=== PATIENT | female | born 1975 | race Hispanic/Latino ===

== ENCOUNTER → 2022-07-14 | Day surgery (SDC) | payer BC ==
--- NOTE | 2022-07-09 14:58 | RAD REPORT ---
EXAM DESCRIPTION: RAD - Chest Pa And Lat (2 Views) - 07/09/2022 2:50 pm CLINICAL HISTORY: PRE OP FOR SURGERY Chest pain. COMPARISON: No comparisons FINDINGS: The lungs are clear. The heart is normal in size. No displaced fractures. IMPRESSION: No acute or concerning finding suspected.
[2022-07-09 15:12] LABS: Absolute Lymphocytes (CBC) 1.8 K/uL (0.7-4.9); Hematocrit 36.3 % (36.0-45.0); Lymphocytes % 24.1 % (15.3-44.8); MCV 86.9 fL (80-100); MPV 8.2 fL (7.6-11.3); RBC Red Blood Cell Count 4.18 M/uL (3.86-4.86)
[2022-07-09 15:16] LABS: Protime INR 1.03
[2022-07-09 15:22] LABS: SARS-CoV-2 Antigen Rapid Res Negative (Negative)
[2022-07-09 15:34] LABS: Potassium 3.5 mmol/L (3.5-5.1)
--- NOTE | 2022-07-12 14:13 | EKG ---
Test Date: 2022-07-09 Test Time: 14:41:00 Metalizer: BG MEASUREMENT RESULTS: Intervals: Rate: 72 PA: 144 QRSD: 84 QT: 398 QTc: 435 Buchanan: P: 14 PA: 144 QRS: 10 T: 21 INTERPRETIVE STATEMENTS: Normal sinus rhythm Normal ECG No previous ECG available for comparison Electronically Signed On 07-12-22 14:10:07 CDT by James Christensen
[~2022-07-14] MED LIST: BUPIVACAINE 0.25% PF 10 ML VIAL ONE; CEFAZOLIN SODIUM 1 GM/VIAL ONE; FENTANYL CITR 100 MCG/2 ML IV ONE; FENTANYL CITR 100 MCG/2 ML ONE; LIDOCAINE 2% MPF 5 ML VIAL ONE; MIDAZOLAM HCL 2 MG/2 ML INJ ONE; NS 0.9% VIAL 30 ML ONE; ONDANSETRON 4 MG/2 ML VIAL ONE; Ringers Lactate 1,000 ML IV ONE; propofoL 200 MG/20 ML VIAL IV ONE
[2022-07-14 10:56] LABS: Urine Specific Gravity/Preg 1.025 (1.005-1.030)
--- NOTE | 2022-07-14 12:05 | P.BOP ---
Preoperative diagnosis: right ring finger trigger digit Postoperative diagnosis: same Primary procedure: right ring finger A1 julián release [employer]: NONE,NONE Estimated blood loss: 2 cc Specimen: none Findings: see dictation Anesthesia: General Complications: None Implants: none Fluids & blood products: per anesthesia record; TT: 15 mins @ 250 mmHg Transferred to: Recovery Room Condition: Good
[2022-07-14 12:39] VITALS: TEMP 97.3
[2022-07-14 12:59] VITALS: O2SAT 100
[2022-07-14 13:41] VITALS: BP 113/70
--- NOTE | 2022-07-15 02:31 | OP ---
Date of Procedure: 07/14/2022 Surgeon: Dylan Reeder MD Preoperative Diagnosis: Right ring finger trigger digit. Postoperative Diagnosis: Right ring finger trigger digit. Procedure Performed: Right ring finger A1 julián release. Anesthesia: General LMA. Fluids: Per Anesthesia record. Estimated Blood Loss: 2 cc. Complications: None. Implants: None. Tourniquet Time: 15 minutes at 250 mmHg. Indication For Procedure: Kaleigh is a 46-year-old female, who presented to my clinic with signs and s ymptoms consistent with a right ring finger trigger digit. The patient failed conservative treatment measures including corticosteroid injection. She reported continued pain, injury to the finger that interferes with her activities of daily living. I discussed with the patient at length risks and be nefits associated with operative and nonoperative treatment. She expressed understanding and elected to proceed with operative treatment. Description Of Procedure: After informed consent was obtained, the patient was identified in the pre operative holding area. The right ring finger was marked. She was then brought back to the operatin g room, transferred to the operating table in a supine fashion, and placed under general LMA anesthes ia. The right upper extremity was then prepped and draped in usual sterile fashion. A time-out was initiated. The correct patient and procedure were confirmed and identified. The patient did receive her preoperative prophylactic antibiotics. The right upper extremity was then exsanguinated using a n Esmarch. The tourniquet was inflated to 250 mmHg. Approximately, a 1 cm incision was made centere d over the ring finger A1 julián. Dissection was then taken down to the A1 julián using Ragnell. Th e flexor tendon sheath was identified and released using a 15 blade. There was significant amount of tenosynovial fluid that was expressed after release of the flexor tendon sheath. A portion of the t endon sheath was excised to minimize risk of recurrence and tendon sheaths were then irrigated thorou ghly with normal saline. The tendon was then brought out through the incision. There was full excur acs of the tendon without triggering noted. The wound was then irrigated and skin was approximated using a 5-0 Prolene. Sterile dressings were applied. Tourniquet was let down. The patient was awak ened and transferred to PACU in stable condition. Postoperative Plan: The patient will be nonweightbearing of her right hand. She may work on range o f motion exercises. She will follow up in 1 week for suture removal. SANJUANA/GISEL Voice ID: [id number] Report ID: [id number]
== END ==
LOC: OR 09:23
PROVIDERS: ATTEND Orthopaedic Surgery Sports Medicine
PROC: 0LN70ZZ Release Right Hand Tendon, Open Approach (ICD-10-PCS; principal; 2022-07-14 11:00)
DX: M65.341 Trigger finger, right ring finger (principal); M25.541 Pain in joints of right hand; Z20.822 Contact with and (suspected) exposure to COVID-19
CPT/HCPCS: 93005; 85025; 80048; 36415; 81025; 85610; 85730; 71046; 87811; 26055; J2704; J2001; J2250; J3010 ×3; A4216; J7120; J2405; J0690

== ENCOUNTER 2023-01-03 14:25 | Emergency (ER) | payer BC ==
--- OUTSIDE RECORDS SUMMARY | 2023-01-03 14:28 | XMS REPORT | Continuity of Care Document ---
:1975 Author Organization [facility] t Address [address] [place] [id number] Care Team Providers Name Role Phone DR BALDEV ALICIA Attending Clinician Unavailable DR BALDEV ALICIA Admitting Clinician Unavailable Problems This patient has no known problems. Allergies, Adverse Reactions, Alerts This patient has no known allergies or adverse reactions. Medications This patient has no known medications. Procedures This patient has no known procedures. Encounters Start End Encounter Admission Attending Care Care Encounter Source Date/Time Date/Time Type Type Clinicians Facility Department ID 2020-08-19 2020-08-19 Outpatient [facility]EL [facility] [place] [id number] 17:09:00 17:09:00 BALDEV [place] [facility] Results This patient has no known results.
--- NOTE | 2023-01-03 14:47 | EDPHYS ---
Physician Documentation [facility] Name: Kaleigh Bentley Age: 47 yrs Sex: Female : 1975 Arrival Date: 01/03/2023 Time: 14:28 Bed IW7 Private MD: ED Physician Jesse Jennings HPI: 01/03 14:43 This 47 yrs old Female presents to ER via Unassigned with complaints of bs3 Allergic Reaction. 14:43 47-year-old female no known past medical history presents with a diffuse itchy rash bs3 since yesterday evening denies any known triggers she notes a similar thing happened she was seen here for it we thought it was related to tilapia however she notes that at that occurrence she had eaten the top and many hours before her rash started denies any new cold exposures any new detergents any recent drugs or anything else bothering her she notes a diffuse itchy rash that improved a little bit with Benadryl however persisted and therefore she came in denies difficulty swallowing or breathing. Historical: - Allergies: 15:11 No Known Allergies; aa5 - Home Meds: 15:12 None [Active]; aa5 - PMHx: 15:12 None; aa5 - Immunization history:: Adult Immunizations unknown. - Social history:: Smoking status: Patient denies any tobacco usage or history of. ROS: 14:43 Constitutional: Negative for fever, chills bs3 14:43 All other systems are negative. Exam: 14:43 Constitutional: This is a well developed, well nourished patient who is awake, alert, bs3 and in no acute distress. Head/Face: Normocephalic, atraumatic. Eyes: Pupils equal round and reactive to light, extra-ocular motions intact. Lids and lashes normal. ENT: mmm, no posterior phyarngeal erythema Neck: Trachea midline, no thyromegaly, no neck stiffness Chest/axilla: Normal chest wall appearance and motion. Nontender with no deformity. No lesions are appreciated. Cardiovascular: Regular rate and rhythm with a normal S1 and S2. symmetric pulses in upper extremities Respiratory: Lungs have equal breath sounds bilaterally, clear to auscultation, no respiratory distress Skin: Diffuse urticarial rash, spares palms soles nothing in her mouth Neuro: Awake and alert, GCS 15, oriented to person, place, time, and situation. Cranial nerves II-XII grossly intact. Motor strength 5/5 in all extremities. Sensory grossly intact. Psych: Awake, alert, with orientation to person, place and time. Behavior, mood, and affect are within normal limits. Vital Signs: 15:08 BP 128 / 87; Pulse 85; Resp 16 S; Temp 98.2(TE); Pulse Ox 100% on R/A; Weight 74.84 kg aa5 (R); Height 5 ft. 3 in. (R); 15:08 Body Mass Index 29.23 (74.84 kg, 160.02 cm) aa5 MDM: 14:33 Patient medically screened. bs3 14:43 Differential diagnosis: No signs of anaphylaxis, possible allergic reaction no signs of bs3 angioedema it is an undifferentiated urticaria will treat for possible allergic reaction but advised primary care follow-up for further work-up given the second episode. Data reviewed: vital signs, nurses notes. Administered Medications: 15:13 Drug: Famotidine PO 20 mg Route: PO; aa5 15:25 Follow up: Response: No adverse reaction aa5 15:13 Drug: ZyrTEC - Cetirizine PO 10 mg Route: PO; aa5 15:25 Follow up: Response: No adverse reaction aa5 15:13 Drug: predniSONE PO 60 mg Route: PO; aa5 15:26 Follow up: Response: No adverse reaction aa5 Disposition Summary: 01/03/23 14:47 Discharge Ordered Location: Home bs3 Problem: new bs3 Symptoms: have improved bs3 Condition: Stable bs3 Diagnosis - Urticaria, unspecified bs3 Followup: bs3 - With: Private Physician - When: 2 - 3 days - Reason: Re-evaluation by your physician Discharge Instructions: - Discharge Summary Sheet bs3 - Hives bs3 Forms: - Work release form eb - Medication Reconciliation Form bs3 - Thank You Letter bs3 - Antibiotic Education bs3 - Prescription Opioid Use bs3 Prescriptions: - Zyrtec 10 mg Oral tablet - take 1 tablet by ORAL route daily for 7 days; 7 tablet; Refills: 0, Product bs3 Selection Permitted - Prednisone 20 mg Oral Tablet - take 3 tablets by ORAL route once daily for 5 days; 15 tablet; Refills: 0, bs3 Product Selection Permitted - Pepcid 20 mg Oral Tablet - take 1 tablet by ORAL route once daily for 7 days; 7 tablet; Refills: 0, bs3 Product Selection Permitted Signatures: Hilaria Guallpa RN RN aa5 Jesse Jennings MD MD bs3
[2023-01-03] MEDS ORDERED: FAMOTIDINE 20 MG TAB ONE (15:11)
[2023-01-03] MEDS ORDERED: predniSONE 20 MG TAB ONE (15:11)
[2023-01-03] MEDS ORDERED: CETIRIZINE HCL 5 MG TABLET ONE (15:12)
[2023-01-03 16:49] VITALS: BP 128/87; TEMP 98.2; O2SAT 100
--- NOTE | 2023-01-04 15:26 | ER ---
Nurse's Notes [facility] Name: Kaleigh Bentley Age: 47 yrs Sex: Female : 1975 Arrival Date: 01/03/2023 Time: 14:28 Bed IW7 Private MD: Diagnosis: Urticaria, unspecified Presentation: 01/03 15:08 Chief complaint: Patient states: "I had 2 spots on my arms yesterday and they were aa5 itchy and today it got worse and it spread to my face". 15:08 Onset of symptoms was December 2022. aa5 15:08 Acuity: NATHALIE 4 aa5 15:08 Method Of Arrival: Ambulatory aa5 15:08 Coronavirus screen: At this time, the client does not indicate any symptoms associated aa5 with coronavirus-19. Ebola Screen: Patient denies travel to an Ebola-affected area in the 21 days before illness onset. Initial Sepsis Screen: Does the patient meet any 2 criteria? No. Patient's initial sepsis screen is negative. Does the patient have a suspected source of infection? No. Patient's initial sepsis screen is negative. Risk Assessment: Do you want to hurt yourself or someone else? Patient reports no desire to harm self or others. 15:08 Onset: The symptoms/episode began/occurred 1 day(s) ago. Anaphylaxis evaluation, no aa5 signs or symptoms of anaphylaxis were noted. Historical: - Allergies: 15:11 No Known Allergies; aa5 - Home Meds: 15:12 None [Active]; aa5 - PMHx: 15:12 None; aa5 - Immunization history:: Adult Immunizations unknown. - Social history:: Smoking status: Patient denies any tobacco usage or history of. Assessment: 15:25 Reassessment: Patient is alert, oriented x 3, equal unlabored respirations, skin aa5 warm/dry/pink. Vital Signs: 15:08 BP 128 / 87; Pulse 85; Resp 16 S; Temp 98.2(TE); Pulse Ox 100% on R/A; Weight 74.84 kg aa5 (R); Height 5 ft. 3 in. (R); 15:08 Body Mass Index 29.23 (74.84 kg, 160.02 cm) aa5 ED Course: 14:28 Patient arrived in ED. rg4 14:33 Jesse Jennings MD is Attending Physician. bs3 15:11 Arm band placed on. aa5 15:12 Triage completed. aa5 15:25 No provider procedures requiring assistance completed. Patient did not have IV access aa5 during this emergency room visit. Administered Medications: 15:13 Drug: Famotidine PO 20 mg Route: PO; aa5 15:25 Follow up: Response: No adverse reaction aa5 15:13 Drug: ZyrTEC - Cetirizine PO 10 mg Route: PO; aa5 15:25 Follow up: Response: No adverse reaction aa5 15:13 Drug: predniSONE PO 60 mg Route: PO; aa5 15:26 Follow up: Response: No adverse reaction aa5 Outcome: 14:47 Discharge ordered by . bs3 15:25 Discharged to home ambulatory. aa5 15:25 Condition: stable 15:25 Discharge instructions given to patient, Instructed on discharge instructions, follow up and referral plans. medication usage, Demonstrated understanding of instructions, follow-up care, medications, Prescriptions given X 3. 15:26 Patient left the ED. aa5 Signatures: Hilaria Guallpa, RN RN [email or web address] Suzie Rodriguez rg4 Jesse Jennings MD MD bs3
== END 2023-01-03 15:26 | disposition home or self-care (01) ==
LOC: ER 14:25
DX: L50.9 Urticaria, unspecified (principal)
CPT/HCPCS: J7512

== ENCOUNTER 2023-02-25 11:20 | Emergency (ER) | payer BC ==
--- OUTSIDE RECORDS SUMMARY | 2023-02-25 11:23 | XMS REPORT | Continuity of Care Document ---
:1975 Author Organization [facility] t Address [address] [place] [address] Care Team Providers Name Role Phone DR [...] Department ID 2020-08-19 2020-08-19 [place]patient [facility] [facility] [id number] [address] 17:09:00 17:09:00 BALDEV [place] [facility] Results This patient has no known results.
--- NOTE | 2023-02-25 12:05 | ER ---
Nurse's Notes [facility] Name: Kaleigh Bentley Age: 47 yrs Sex: Female : 1975 Arrival Date: 02/25/2023 Time: 11:20 Bed 10 Private MD: Diagnosis: Allergic contact dermatitis due to other agents Presentation: 02/25 11:38 Chief complaint: Itchy rash on left arm upon waking today. Coronavirus screen: At this hb time, the client does not indicate any symptoms associated with coronavirus-19. Ebola Screen: No symptoms or risks identified at this time. Initial Sepsis Screen: Does the patient meet any 2 criteria? No. Patient's initial sepsis screen is negative. Does the patient have a suspected source of infection? No. Patient's initial sepsis screen is negative. Risk Assessment: Do you want to hurt yourself or someone else? Patient reports no desire to harm self or others. Onset of symptoms was February 25, 2023. 11:38 Method Of Arrival: Ambulatory hb 11:38 Acuity: NATHALIE 4 hb Triage Assessment: 11:39 General: Appears in no apparent distress. Behavior is calm, cooperative. Pain: Pain hb currently is 2 out of 10 on a pain scale. Neuro: Level of Consciousness is awake, alert, obeys commands, Oriented to person, place, time, situation. Cardiovascular: Patient's skin is warm and dry. Respiratory: Respiratory effort is even, unlabored, Respiratory pattern is regular, symmetrical. Historical: - Allergies: 11:39 No Known Allergies; hb - Home Meds: 11:39 None [Active]; hb - PMHx: 11:39 None; hb - PSHx: 11:39 Tummy Tuck; Ligation of fallopian tube; hb - Immunization history:: Adult Immunizations up to date. - Social history:: Smoking status: Patient denies any tobacco usage or history of. Screenin:44 [facility] ED Fall Risk Assessment (Adult) Score/Fall Risk Level 0 - 2 = Low Risk hb Oriented to surroundings, Maintained a safe environment. Abuse screen: Denies threats or abuse. Denies injuries from another. Nutritional screening: No deficits noted. Tuberculosis screening: No symptoms or risk factors identified. Assessment: 11:44 General: See triage assessment . hb Vital Signs: 11:38 BP 131 / 86; Pulse 68; Resp 16; Temp 98.4(O); Pulse Ox 100% on R/A; Weight 74.39 kg; hb Height 5 ft. 3 in. ; Pain 2/10; 11:38 Body Mass Index 29.05 (74.39 kg, 160.02 cm) hb 11:38 Pain Scale: Adult hb ED Course: 11:22 Patient arrived in ED. ts1 11:38 Travis Robles MD is Attending Physician. kdr 11:39 Triage completed. hb 11:40 Arm band placed on. hb 11:44 Patient has correct armband on for positive identification. hb 11:44 No provider procedures requiring assistance completed. Patient did not have IV access hb during this emergency room visit. 12:03 Ramesh Do, RN is Primary Nurse. jl7 Administered Medications: 12:10 Drug: MethylPREDNISolone Sodium Succinate IM 125 mg Route: IM; Site: right jl7 ventrogluteal; 12:33 Follow up: Response: No adverse reaction jl7 12:12 Drug: diphenhydrAMINE PO 25 mg Route: PO; jl7 12:33 Follow up: Response: No adverse reaction jl7 Medication: 11:44 VIS not applicable for this client. hb Outcome: 12:04 Discharge ordered by . kdr 12:28 Discharged to home ambulatory. hb 12:28 Condition: stable 12:28 Discharge instructions given to patient, Instructed on discharge instructions, follow up and referral plans. medication usage, Demonstrated understanding of instructions, follow-up care, medications, Prescriptions given X 2. 12:33 Patient left the ED. jl7 Signatures: Travis Robles MD MD kdr Baxter, Heather RN RN Ramesh Do RN RN jl7 Jazmine Garcia PAS PAS ts1
--- NOTE | 2023-02-25 12:05 | EDPHYS ---
Physician Documentation [facility] Name: Kaleigh Bentley Age: 47 yrs Sex: Female : 1975 Arrival Date: 02/25/2023 Time: 11:20 Bed 10 Private MD: ED Physician Travis Robles HPI: 02/25 12:02 This 47 yrs old Female presents to ER via Ambulatory with complaints of Rash. kdr 12:07 Patient woke this morning with a itchy rash on her left upper arm and left mid forearm. kdr She denies any particular precipitating or exposure. She denies being in proximity to poison anahi or poison oak. She has no respiratory dyspnea or any other symptoms suggesting acute allergic crisis. Patient otherwise stable and not requiring any emergent intervention.. Onset: The symptoms/episode began/occurred suddenly, this morning. Severity of symptoms: At their worst the symptoms were mild in the emergency department the symptoms are unchanged. The patient has not experienced similar symptoms in the past. The patient has not recently seen a physician. Historical: - Allergies: 11:39 No Known Allergies; hb - Home Meds: 11:39 None [Active]; hb - PMHx: 11:39 None; hb - PSHx: 11:39 Tummy Tuck; Ligation of fallopian tube; hb - Immunization history:: Adult Immunizations up to date. - Social history:: Smoking status: Patient denies any tobacco usage or history of. ROS: 12:07 Constitutional: Negative for fever, chills, and weight loss, Eyes: Negative for injury, kdr pain, redness, and discharge, ENT: Negative for injury, pain, and discharge, Neck: Negative for injury, pain, and swelling, Cardiovascular: Negative for chest pain, palpitations, and edema, Respiratory: Negative for shortness of breath, cough, wheezing, and pleuritic chest pain, Abdomen/GI: Negative for abdominal pain, nausea, vomiting, diarrhea, and constipation, Back: Negative for injury and pain, : Negative for injury, bleeding, discharge, and swelling, MS/Extremity: Negative for injury and deformity, Neuro: Negative for headache, weakness, numbness, tingling, and seizure activity. Psych: Negative for depression, anxiety, suicide ideation, homicidal ideation, and hallucinations, Allergy/Immunology: Negative for hives, rash, and allergies, Endocrine: Negative for neck swelling, polydipsia, polyuria, polyphagia, and marked weight changes, Hematologic/Lymphatic: Negative for swollen nodes, abnormal bleeding, and unusual bruising. 12:07 Skin: Positive for rash, of the left bicep and dorsal aspect of left forearm. Exam: 12:07 Constitutional: This is a well developed, well nourished patient who is awake, alert, kdr and in no acute distress. Head/Face: Normocephalic, atraumatic. Eyes: Pupils equal round and reactive to light, extra-ocular motions intact. Lids and lashes normal. Conjunctiva and sclera are non-icteric and not injected. Cornea within normal limits. Periorbital areas with no swelling, redness, or edema. Neck: Trachea midline, no thyromegaly or masses palpated, and no cervical lymphadenopathy. Supple, full range of motion without nuchal rigidity, or vertebral point tenderness. No Meningismus. Chest/axilla: Normal chest wall appearance and motion. Nontender with no deformity. No lesions are appreciated. MS/ Extremity: Pulses equal, no cyanosis. Neurovascular intact. Full, normal range of motion. 12:07 Skin: rash a mild rash is noted, rash can be described as erythematous, macular, papular, raised, urticarial, contact dermatitis. Vital Signs: 11:38 BP 131 / 86; Pulse 68; Resp 16; Temp 98.4(O); Pulse Ox 100% on R/A; Weight 74.39 kg; hb Height 5 ft. 3 in. ; Pain 2/10; 11:38 Body Mass Index 29.05 (74.39 kg, 160.02 cm) hb 11:38 Pain Scale: Adult hb MDM: 12:04 Patient medically screened. kdr 12:07 Data reviewed: vital signs, nurses notes. kdr Administered Medications: 12:10 Drug: MethylPREDNISolone Sodium Succinate IM 125 mg Route: IM; Site: right jl7 ventrogluteal; 12:33 Follow up: Response: No adverse reaction jl7 12:12 Drug: diphenhydrAMINE PO 25 mg Route: PO; jl7 12:33 Follow up: Response: No adverse reaction jl7 Disposition Summary: 02/25/23 12:04 Discharge Ordered Location: Home kdr Problem: new kdr Symptoms: have improved kdr Condition: Stable kdr Diagnosis - Allergic contact dermatitis due to other agents kdr Followup: kdr - With: Private Physician - When: 2 - 3 days - Reason: If symptoms return, Further diagnostic work-up, Recheck today's complaints, Continuance of care, Re-evaluation by your physician Discharge Instructions: - Discharge Summary Sheet kdr - Contact Dermatitis, [id number] kdr Forms: - Medication Reconciliation Form kdr - Thank You Letter kdr Prescriptions: - Benadryl 25 mg Oral Capsule - take 1 capsule by ORAL route every 6 hours As needed; 30 tablet; Refills: 0, kdr Product Selection Permitted - Medrol (Víctor) 4 mg Oral Tablets, Dose Pack - take 1 tablet by ORAL route as directed - follow package instructions; 1 kdr packet; Refills: 0, Product Selection Permitted Signatures: Travis Robles MD MD kdr Jo Dodd, RN RN Ramesh Do RN RN jl7
[2023-02-25] MEDS ORDERED: METHYLPREDNISOLONE 125 MG INJ ONE (12:18)
[2023-02-25] MEDS ORDERED: DIPHENHYDRAMINE 25 MG TAB/CAP ONE (12:18)
[2023-02-25 12:38] VITALS: BP 131/86; TEMP 98.4; O2SAT 100
== END 2023-02-25 12:33 | disposition home or self-care (01) ==
LOC: ER 11:20
DX: L23.89 Allergic contact dermatitis due to other agents (principal)
CPT/HCPCS: 96372; 99284; J2930